=== PATIENT | female | born 1960 | race Caucasian/White ===

== ENCOUNTER 2016-09-27 16:24 | Emergency (ER) | payer MEDICAID ==
[~2016-09-27] VITALS: Ht 165.1 cm; Wt 73.2 kg
[~2016-09-27 16:24] MED LIST: BG MC; COLACE100 MG PO; LIPI10 PO; LIPITOR40 MG PO; METFORMIN HCL500 MG PO; NOR10T PO; NORCO1 TA2 PO; ZESTRIL5 MG PO
[2016-09-27 18:47] VITALS: BP 141/82
== END 2016-09-27 18:47 | disposition home or self-care (01) ==
LOC: ED 16:24
DX: J40 Bronchitis, not specified as acute or chronic (principal); J06.9 Acute upper respiratory infection, unspecified
CPT/HCPCS: J1885

== ENCOUNTER 2018-04-02 11:42 | Emergency (ER) | payer MEDICAID ==
[~2018-04-02] VITALS: Ht 160 cm; Wt 74.4 kg
[2018-04-02 11:57] VITALS: Ht 160 cm; Wt 74.4 kg
[2018-04-02 13:01] LABS: CALCIUM 9.1 mg/dL (8.5-10.1); CARBON DIOXIDE 29.9 mmol/L (21-32); CHLORIDE SERUM 103 mmol/L (98-107); CREATININE SERUM 0.7 mg/dL (0.6-1.0); GFR1 > 60 mL/min; GLUCOSE SERUM 98 mg/dL (74-106); SODIUM SERUM 139 mmol/L (136-145)
[2018-04-02 13:05] LABS: ALBUMIN 3.4 g/dL (3.4-5.0); ALKALINE PHOSPHATASE 91 U/L (46-116); ALT/SGPT 27 U/L (14-59); AST/SGOT 19 U/L (15-37); BILIRUBIN TOTAL 0.34 mg/dL (0.20-1.00); LIPASE 94 IU/L (73-393)
[2018-04-02 13:06] LABS: TOTAL PROTEIN, SERUM 8.6 g/dL (6.4-8.2)
[2018-04-02 13:20] LABS: BASOPHIL % 0.7 % (0-2); PLATELET COUNT 226 x10^3mcL (130-400); RED CELL DISTRIBUTION WIDTH 13.3 % (11.5-14.5)
[2018-04-02 14:38] VITALS: BP 118/68
== END 2018-04-02 14:38 | disposition home or self-care (01) ==
LOC: ED 11:42
PROVIDERS: Emergency Medicine
DX: K29.00 Acute gastritis without bleeding (principal); E78.00 Pure hypercholesterolemia, unspecified; Z98.890 Other specified postprocedural states
CPT/HCPCS: 36415

== ENCOUNTER 2018-11-01 17:29 | Emergency (ER) | payer MEDICAID ==
[~2018-11-01] VITALS: Ht 152.4 cm; Wt 75.4 kg
[2018-11-01 18:21] VITALS: Ht 152.4 cm; Wt 75.4 kg
[2018-11-01 19:58] VITALS: BP 134/81
== END 2018-11-01 19:58 | disposition home or self-care (01) ==
LOC: ED 17:29
DX: J06.9 Acute upper respiratory infection, unspecified (principal); G89.29 Other chronic pain; M54.9 Dorsalgia, unspecified; E78.00 Pure hypercholesterolemia, unspecified

== ENCOUNTER 2019-02-05 21:44 | Emergency (ER) | payer MEDICAID ==
[~2019-02-05] VITALS: Ht 165.1 cm; Wt 74.4 kg
[2019-02-05 21:54] VITALS: Ht 165.1 cm; Wt 74.4 kg
[2019-02-05 22:36] LABS: BASOPHIL % 0.4 % (0-2); PLATELET COUNT 245 x10^3mcL (130-400); RED CELL DISTRIBUTION WIDTH 13.2 % (11.5-14.5)
[2019-02-05 22:37] LABS: CALCIUM 9.4 mg/dL (8.5-10.1); CARBON DIOXIDE 30.8 mmol/L (21-32); CHLORIDE SERUM 105 mmol/L (98-107); CREATININE SERUM 0.8 mg/dL (0.6-1.0); GFR1 > 60 mL/min; GLUCOSE SERUM 112 mg/dL (74-106); SODIUM SERUM 143 mmol/L (136-145)
[2019-02-05 22:42] LABS: ALBUMIN 3.6 g/dL (3.4-5.0); ALKALINE PHOSPHATASE 94 U/L (46-116); ALT/SGPT 32 U/L (14-59); AST/SGOT 19 U/L (15-37); BILIRUBIN TOTAL 0.4 mg/dL (0.20-1.00); LIPASE 66 IU/L (73-393); TOTAL PROTEIN, SERUM 7.9 g/dL (6.4-8.2)
[2019-02-06 01:16] VITALS: BP 164/50
== END 2019-02-06 01:16 | disposition home or self-care (01) ==
LOC: ED 21:44
PROVIDERS: Emergency Medicine
DX: K29.70 Gastritis, unspecified, without bleeding (principal); E78.00 Pure hypercholesterolemia, unspecified; Z90.49 Acquired absence of other specified parts of digestive tract; Z98.890 Other specified postprocedural states
CPT/HCPCS: J2270; J2405

== ENCOUNTER 2019-06-14 20:32 | Inpatient (IN) | payer MEDICAID ==
[~2019-06-14] VITALS: Ht 154.9 cm; Wt 73.9 kg
[2019-06-14 20:35] VITALS: Ht 154.9 cm; Wt 73.9 kg
--- NOTE | 2019-06-14 20:37 | NUR ---
EKG IN PROGRESS.
--- NOTE | 2019-06-14 20:41 | NUR ---
PT SENT OUT TO THE LOBBY WITH FAMILY MEMEBER. RESP ARE E/U. NO ACUTE DISTRESS NOTED.
--- NOTE | 2019-06-14 21:17 | NUR ---
PT. PRESENTS TO ER C/O CHEST PAIN 02/19, PRESSURE, INTERMITTENT RADIATING TO LEFT ARM AND NECK SINCE 1200 PM TODAY, FATIGUED, DIZZINESS, STATES SHE GETS VERY SWEATY WHEN THE PAIN IS WORSE, DENEIS TAKING ANYTHING FOR PAIN, DENIES N/V/D, DENIES ANY URINARY SYMPTOMS, PLACED IN BED T2A, AAOX4, GOWNED, PLACED ON CM, REPOSITIONED FOR COMFORT, DR. CASTELLANO AT BEDSIDE AT BEDSIDE WITH MSE, VSS, WILL MONITOR.
[2019-06-14 21:47] LABS: BASOPHIL % 0.4 % (0-2); PLATELET COUNT 235 x10^3mcL (130-400); RED CELL DISTRIBUTION WIDTH 12.7 % (11.5-14.5)
--- NOTE | 2019-06-14 21:48 | NUR ---
X RAY AT BEDSIDE
--- NOTE | 2019-06-14 21:50 | NUR ---
MEDICATED PT. PER MD ORDERS, PT. TOLERATED WELL, SEE EMAR
--- NOTE | 2019-06-14 21:50 | NUR ---
REASSES PT. FOR CHEST PAIN RELIEF, PT. REPORTS 0/10 CHEST PAIN WITH ONE DOES OF NITRO STAT 0.4 MG, MADE AWARE,
[2019-06-14 21:58] LABS: CALCIUM 8.8 mg/dL (8.5-10.1); CARBON DIOXIDE 28.9 mmol/L (21-32); CHLORIDE SERUM 100 mmol/L (98-107); CREATININE SERUM 0.7 mg/dL (0.6-1.0); GFR1 > 60 mL/min; GLUCOSE SERUM 97 mg/dL (74-106); POTASSIUM SERUM 4.2 mmol/L (3.5-5.1); SODIUM SERUM 135 mmol/L (136-145)
[2019-06-14 22:02] LABS: ALBUMIN 3.5 g/dL (3.4-5.0); ALKALINE PHOSPHATASE 101 U/L (46-116); ALT/SGPT 26 U/L (14-59); AST/SGOT 14 U/L (15-37); BILIRUBIN TOTAL 0.39 mg/dL (0.20-1.00); CHOLESTEROL 270 mg/dL (<200); CHOLESTEROL/HDL RATIO 5.4; HDL CHOLESTEROL 50 mg/dL (40-60); LIPASE 90 IU/L (73-393); TOTAL PROTEIN, SERUM 7.9 g/dL (6.4-8.2); TRIGLYCERIDES 126 mg/dL (<150)
[2019-06-14 22:12] LABS: FREE T4 1.12 ng/dL (0.76-1.46); FREE THYROXINE INDEX 3.5 ug/dL (1.4-4.5); T4(THYROXINE) 10.4 ug/dL (4.7-13.3)
[2019-06-14 22:13] LABS: T3 TOTAL 1.78 ng/mL
[2019-06-14 22:39] LABS: microscopic required? NO
--- NOTE | 2019-06-14 22:42 | NUR ---
PT. LAYING IN BED, AAOX4, NO ACUTE DISRESS NOTED, RR E/U, DENIES CHEST PAIN AT THIS TIME, STATES "I FEEL GOOD." DAUGHTER AT BEDSIDE, VSS, WILL MONITOR, CALL LIGHT WITHIN REACH
[2019-06-14 22:59] LABS: urine erythrocyte NEGATIVE (NEGATIVE)
[2019-06-14 23:36] LABS: MAGNESIUM 2.2 mg/dL (1.8-2.4); PHOSPHOROUS 4.1 mg/dL (2.5-4.9)
[2019-06-14 23:37] LABS: AMPHETAMINE QUAL UR NONE DETECTED (See below)
--- NOTE | 2019-06-14 23:44 | NUR ---
REPORT GIVEN TO MIRTHA HORTON TELE
--- NOTE | 2019-06-15 00:30 | NUR ---
RECEIVED PT VIA RNEY FROM E/D, ACCOMPANIED BY RN AND TRANSPORTER. PT A/A/O X 4, CALM, COOPERATIVE; C/O INTERMITTENT THROBBING H/A 6/10; WEARS GLASSES (W/ PT); SPEAKS MOSTLY [place], MAME LANDRY, BY BEDSIDE FOR TRANSLATION. GENERALIZED WEAKNESS BUT ABLE TO AMBULATE FROM GURNEY TO BED W/ SLOW, STEADY GAIT; FALL RISK PROTOCOL IN PLACE. ON TELE # 1, NSR, HR 66, C/O INTERMITTENT CHEST PRESSURE 4/10 THAT IS NOT EXACERBATED BY ANYTHING, RELIEVED MODERATELY BY MEDICATION; ALSO C/O DIZZINESS THIAGO W/ AMBULATION. SCD BY BEDSIDE. ON 2LNC FOR COMFORT, NO ACUTE RESPIRATORY DISTRESS NOTED. IV SITE ABBY 20G, CDI. ORIENTED PT TO ROOM, BED CONTROLS, CALL LIGHT SYSTEM. SIDE RAILS UP X 2, BED IN LOW POSITION. WILL ENDORSE TO SOL SOTO.
[2019-06-15 00:59] VITALS: BP 146/55
--- NOTE | 2019-06-15 01:21 | NUR ---
AWAKE WITH NO C/O CHEST DISCOMFORT AT THIS TIME AFTER PATIENT WAS MEDICATED IN ER FOR PAIN. ADMISSION ORDERS CARRIED OUT. WILL CONTINUE TO MONITOR. CALL LIGHT WITHIN REACH.
--- NOTE | 2019-06-15 05:07 | NUR ---
SLEPT FAIRLY DENIES CHEST DISCOMFORT SINCE PATIENT ADMITTED TO FLOOR.
[2019-06-15 05:22] VITALS: BP 128/61
[2019-06-15 06:30] LABS: BASOPHIL % 1.1 % (0-2); PLATELET COUNT 223 x10^3mcL (130-400); RED CELL DISTRIBUTION WIDTH 12.6 % (11.5-14.5)
[2019-06-15 07:33] LABS: CALCIUM 8.5 mg/dL (8.5-10.1); CARBON DIOXIDE 27.2 mmol/L (21-32); CHLORIDE SERUM 104 mmol/L (98-107); CREATININE SERUM 0.7 mg/dL (0.6-1.0); GFR1 > 60 mL/min; GLUCOSE SERUM 95 mg/dL (74-106); MAGNESIUM 2.4 mg/dL (1.8-2.4); PHOSPHOROUS 4.3 mg/dL (2.5-4.9); POTASSIUM SERUM 4.5 mmol/L (3.5-5.1); SODIUM SERUM 138 mmol/L (136-145)
--- NOTE | 2019-06-15 08:08 | NUR ---
RECEIVED PATIENT FROM SOL FIERRO. PATIENT IN BED AT THIS TIME, STATES MILD CHEST PAIN. DENIES RADIATION OF PAIN. SPOKE WITH PATIENT ABOUT PLAN OF CARE TODAY INCLUDING PO MEDICATIONS, ROUNDS BY MEDICAL TEAM, AND TO BE SEEN BY DR KEANE. PATIENT AGREES, WILL CONTINUE TO MONITOR. CALL LIGHT IN REACH.
[2019-06-15 09:21] VITALS: BP 115/51
--- NOTE | 2019-06-15 09:35 | NUR ---
DR ROYAL AND DR CANTRELL IN TO SPEAK WITH PATIENT. STATES THAT PATIENT CHEST PAIN LIKELY TO MUSCLE STRAIN AND NOT LIKELY CARDIAC RELATED, AND LIKELY TO BE DISCHARGE ONCE CLEARED BY CARDIOLOGY, ALSO PATIENT ALSO NEEDS TO FOLLOW UP WITH PCP. PATIENT VERBALIZES UNDERSTANDING. DR ROYAL ALSO SUGGESTED PRN MOTRIN FOR MUSCULAR PAIN AND WILL ORDER TODAY. ALL QUESTIONS ADDRESSED AT THIS TIME. CALL LIGHT IN REACH.
[2019-06-15 13:16] VITALS: BP 111/54
--- NOTE | 2019-06-15 13:21 | NUR ---
PATIENT SEEN SEATED UP TO BED EATING LUNCH TRAY. CONTINUES TO HAVE MILD COMPLAINTS OF L UPPER CHEST PAIN. WILL ADMINISTER PRN MOTRIN ONCE VERIFIED BY PHARMACY. NO OTHER COMPLAINTS AT THIS TIME. CALL LIGHT IN REACH.
--- NOTE | 2019-06-15 15:05 | NUR ---
RESTING QUIETLY AND COMFORTBLY WITH DTR AT BEDSIDE. DENIES NEED FOR PAIN MED. IV HL'D. BREATHING FREELY ON RA. CALL LIGHT WITHIN REACH.
--- NOTE | 2019-06-15 15:35 | NUR ---
Discount pharmacay card and list to low cost medical clinics given to patient by Nayely Crisostomo.
[2019-06-15 16:23] VITALS: BP 131/63
--- NOTE | 2019-06-15 19:17 | NUR ---
RESTING COMFORTABLY. NO C/O CHEST PAIN. BREATHING FREELY ON RA. BRP. IV HL'D. CALL LIGHT WITHIN REACH.
--- NOTE | 2019-06-15 19:30 | NUR ---
PT RECEIVED A/O X4, PRIMARILY SERBIAN SPEAKING, ABLE TO MAKE NEEDS KNOWN. TELE #1, PT DENIES ANY CP/PRESSURE. PULSES PALPABLE, NO EDEMA PRESENT. BREATHING IS EVEN AND UNLABORED, NO RESP DISTRESS NOTED. ABD SOFT AND NONDISTENDED, DENIES N/V. VOIDS FREELY. GENERALIZED WEAKNESS. SKIN IS WARM AND DRY, INTACT. PT DENIES HAVING ANY PAIN AT THSI TIME. SL TO ABBY, INTACT. NO ACUTE DISTRESS NOTED. BED IN LOWEST SETTING, SIDE RAILS UP X2, CALL LIGHT WITHIN REACH. WILL CONT TO MONITOR.
[2019-06-15 21:00] VITALS: BP 111/53
--- NOTE | 2019-06-15 21:17 | NUR ---
PT C/O OF 6/10 CHEST PAIN. BP-112/46, REPEAT 111/52, HR-69. PRN IBUPROFEN GIVEN ORDERED. SNACKS PROVIDED. NO ACUTE DISTRESS OBSERVED. WILL CONT TO MONITOR.
--- NOTE | 2019-06-16 06:02 | NUR ---
PT SLEPT WELL THROUGHOUT THE EVENING WITH ONE EPISODES OF CP NOTED DURING SHIFT. BREATHING IS EVEN AND UNLABORED, NO RESP DISTRESS NOTED. PT DENIES HAVING ANY PAIN AT THIS TIME. SL TO ABBY, INTACT. NO ACUTE CHANGES ENCOUNTERED DURING SHIFT. ALL NEEDS MET AND ANTICIPATED. PT COMPLIANT WITH NURSING CARE. CALL LIGHT WITHIN REACH. WILL ENDORSE CARE TO AM NURSE.
[2019-06-16 06:37] VITALS: BP 127/77
[2019-06-16 07:03] LABS: CALCIUM 8.8 mg/dL (8.5-10.1); CARBON DIOXIDE 29.6 mmol/L (21-32); CHLORIDE SERUM 105 mmol/L (98-107); CREATININE SERUM 0.7 mg/dL (0.6-1.0); GFR1 > 60 mL/min; GLUCOSE SERUM 103 mg/dL (74-106); MAGNESIUM 2.3 mg/dL (1.8-2.4); POTASSIUM SERUM 4.5 mmol/L (3.5-5.1); SODIUM SERUM 141 mmol/L (136-145)
[2019-06-16 07:07] LABS: BASOPHIL % 0.7 % (0-2); PLATELET COUNT 218 x10^3mcL (130-400); RED CELL DISTRIBUTION WIDTH 12.7 % (11.5-14.5)
[2019-06-16 07:49] VITALS: BP 143/75
--- NOTE | 2019-06-16 07:50 | NUR ---
ALERT AND ORIENTED. BREATHING FREELY ON RA. UPPER LEFT CHEST AND SHOULDER DISCOMFORT 11/19. WILL ADMIN MOTRIN. INDEPENDENT W ADL'S. GOOD APPETITE WITH BREAKFAST. IV HL'D. VSS CALL LIGHT WITHIN REACH.
--- NOTE | 2019-06-16 12:07 | NUR ---
PT AMBULATED IN HALLWAY WITH DTR.
[2019-06-16 14:10] VITALS: BP 115/55
--- NOTE | 2019-06-16 15:47 | NUR ---
ECHO CANCELLED BY ELECTRO MECHANIC
--- NOTE | 2019-06-16 16:36 | NUR ---
MED SURG PT. RETURNED TELE # 1 TO TELE STATION.
[2019-06-16 17:03] VITALS: BP 117/56
--- NOTE | 2019-06-16 18:53 | NUR ---
ALERT AND ORIENTED. INDEPENDENT W ADL'S. VSS. CLEARED BY DR. KEANE. PT WILL BE STAYING D/T CONTINUED C/O LEFT UPPER CHEST AND SHOULDER PAIN. RECEIVES MOTRIN WITH GOOD EFFECT. CALL LIGHT WITHINREACH.
[2019-06-16 19:40] VITALS: BP 110/47
--- NOTE | 2019-06-16 19:40 | NUR ---
RECEIVED PT AWAKE ALERT AND VERBALLY RESPONSIVE IN YI .BP 110/47 MMHG,HR 59.DENIES SHOULDER PAIN AT THIS TIME.ENCOURAGED TO CALL FOR ASSISTANCE AT ALL TIMES.WILL CONTINUE TO MONITOR.
--- NOTE | 2019-06-17 04:50 | NUR ---
PT SLEPT WELL .DENIES CHESTPAIN ALL NIGHT.DENIES SHOULDER PAIN.ALL NEEDS ATTENDED.WILL CONTINUE TO MONITOR.
[2019-06-17 05:41] VITALS: BP 124/63
[2019-06-17 06:18] LABS: BASOPHIL % 0.4 % (0-2); PLATELET COUNT 234 x10^3mcL (130-400); RED CELL DISTRIBUTION WIDTH 12.7 % (11.5-14.5)
[2019-06-17 06:45] LABS: CARBON DIOXIDE 28.8 mmol/L (21-32); CHLORIDE SERUM 104 mmol/L (98-107); CREATININE SERUM 0.8 mg/dL (0.6-1.0); GFR1 > 60 mL/min; GLUCOSE SERUM 105 mg/dL (74-106); POTASSIUM SERUM 5.1 mmol/L (3.5-5.1); SODIUM SERUM 140 mmol/L (136-145)
--- NOTE | 2019-06-17 07:16 | NUR ---
RECEIVED REPORT FROM NABILA HORTON. PATIENT RESTING COMFORTABLY IN BED INQUIRING ABOUT HER POSSIBLE DISCHARGE TODAY. PT ON ROOM AIR IN NO APARRENT DISTRESS. NO C/O CHEST PAIN. SALINE LOCK TO LFA IS PATENT AND INTACT. NO REDNESS OR PAIN. ALL QUESTIONS AND CONCERNS ADDRESSED.
[2019-06-17 08:28] VITALS: BP 141/46
[2019-06-17] MEDS ORDERED: LIPI10 PO (09:36)
[2019-06-17] MEDS ORDERED: PRI20 PO (09:37)
[2019-06-17 11:32] VITALS: BP 141/46
[2019-06-17 12:18] VITALS: BP 135/41
--- NOTE | 2019-06-17 14:30 | NUR ---
PT STABLE FOR DISCHARGE PER MD. DISCHARGE INSTRUCTIONS AND SUMMARY DISCUSSED WITH PATIENT. PT NOTITIFE THAT NEW PRESCRIPTIONS WERE SENT TO HER PREFFERRED PHARMACY AND PATIENT CONFIRMED PHARMACY LOCATION. PT VERBALIZED UNDERSTANDING AND AGREES TO FOLLOW UP WITH PCP. ID BAND CUT AND IV REMOVED. PT ESCORTED TO LOBBY VIA WHEELCHAIR.
== END 2019-06-17 14:40 | disposition home or self-care (01) | DRG 203 ==
LOC: ED 20:32 → DU 23:06 → MU 06-16 16:09
PROVIDERS: Specialist; ADMIT Internal Medicine
DX: M94.0 Chondrocostal junction syndrome [Tietze] (principal); E11.65 Type 2 diabetes mellitus with hyperglycemia; E87.1 Hypo-osmolality and hyponatremia; K21.9 Gastro-esophageal reflux disease without esophagitis; E78.5 Hyperlipidemia, unspecified; Z68.30 Body mass index [BMI] 30.0-30.9, adult; Z87.891 Personal history of nicotine dependence
CPT/HCPCS: 82962; 83880; 84439; G0378; J7030; Q0092

== ENCOUNTER 2020-08-12 16:05 | Emergency (ER) | payer MEDICAID, SELFPAY ==
[~2020-08-12] VITALS: Ht 157.5 cm; Wt 77.1 kg
[~2020-08-12 16:05] MED LIST changes: +PRI20 PO
[2020-08-12 16:07] VITALS: BP 145/86; Ht 157.5 cm; Wt 77.1 kg
[2020-08-12 17:16] LABS: BASOPHIL % 0.7 % (0.2-1.3); PLATELET COUNT 260 x10^3mcL (179-408); RED CELL DISTRIBUTION WIDTH 13.9 % (12.3-17.7)
[2020-08-12 17:26] LABS: CALCIUM 9.1 mg/dL (8.5-10.1); CHLORIDE SERUM 99 mmol/L (98-107); CREATININE SERUM 0.9 mg/dL (0.6-1.0); GFR1 > 60 mL/min; GLUCOSE SERUM 135 mg/dL (74-106); POTASSIUM SERUM 4.5 mmol/L (3.5-5.1); SODIUM SERUM 137 mmol/L (136-145)
[2020-08-12 17:28] LABS: microscopic required? NO
[2020-08-12 17:33] LABS: ALBUMIN 3.5 g/dL (3.4-5.0); ALKALINE PHOSPHATASE 102 U/L (46-116); ALT/SGPT 38 U/L (14-59); AST/SGOT 24 U/L (15-37); BILIRUBIN TOTAL 0.4 mg/dL (0.20-1.00); LIPASE 73 IU/L (73-393); TOTAL PROTEIN, SERUM 8.4 g/dL (6.4-8.2)
[2020-08-12 17:36] LABS: urine erythrocyte NEGATIVE (NEGATIVE)
== END 2020-08-12 19:29 | disposition home or self-care (01) ==
LOC: ED 16:05
PROVIDERS: Emergency Medicine
DX: J18.9 Pneumonia, unspecified organism (principal); R10.9 Unspecified abdominal pain; R19.7 Diarrhea, unspecified; E78.00 Pure hypercholesterolemia, unspecified; E11.9 Type 2 diabetes mellitus without complications; E66.9 Obesity, unspecified; Z68.31 Body mass index [BMI] 31.0-31.9, adult; Z20.822 Contact with and (suspected) exposure to COVID-19; Z98.890 Other specified postprocedural states
CPT/HCPCS: 82962; J0500; U0003